=== PATIENT | female | born 1970 | race Two or more races ===

== ENCOUNTER 2019-05-06 09:27 | Emergency (ER) | payer OTHER ==
[~2019-05-06] VITALS: Ht 162.6 cm; Wt 115.9 kg
--- NOTE | 2019-05-06 09:50 | NUR ---
Assumed care of patient. C/O upper lip edema starting last night. Took 50mg PO benadryl last night without relief. Started lisinopril 6 months ago. NAD. Will continue to monitor.
--- NOTE | 2019-05-06 10:55 | NUR ---
Resting in [facility]. NAD. No needs.
--- NOTE | 2019-05-06 12:15 | NUR ---
Upper lip remains edematous. No respiratory distress. NAD. Provided with blanket.
--- NOTE | 2019-05-06 13:05 | NUR ---
C/O tongue swelling and mild thriat tightness. HILARY Christianson and MD Ron aware.
[2019-05-06] MEDS ORDERED: DIPHENHYDRAMINE 50 MG/ML, 1ML ONE (13:11)
[2019-05-06] MEDS ORDERED: DEXAMETHASONE 4 MG/ML, 5ML ONE (13:11)
[2019-05-06] MEDS ORDERED: FAMOTIDINE 20 MG/2 ML ONE (13:12)
[2019-05-06] MEDS ORDERED: DIPHENHYDRAMINE 50 MG/ML, 1ML IVPush ONE (13:30)
[2019-05-06] MEDS ORDERED: FAMOTIDINE 20 MG/2 ML IVPush ONE (13:30)
[2019-05-06] MEDS ORDERED: DEXAMETHASONE 4 MG/ML, 1ML IVPush ONE (13:30)
--- NOTE | 2019-05-06 13:30 | NUR ---
IV started and meds admin. VSS.
[2019-05-06 13:33] LABS: MEAN CORPUSCULAR HEMOGLOBIN 29.4 pg (27.0-34.8); MEAN CORPUSCULAR HGB CONC 32.1 g/dL (32.4-35.8); MEAN CORPUSCULAR VOLUME 91.8 fL (80-100); MEAN PLATELET VOLUME 8.6 fL (7.4-10.4); PLATELET COUNT 256 x10^3/uL (130-400); RED BLOOD COUNT 4.71 x10^6/uL (3.82-5.3); RED CELL DISTRIBUTION WIDTH 18.3 % (9.6-15.2)
[2019-05-06 13:45] LABS: ALBUMIN 3.4 g/dL (3.4-5.0); ANION GAP 7 mmol/L (5-15); CHLORIDE 110 mmol/L (98-107)
[2019-05-06 13:46] LABS: CREATININE 0.82 mg/dL (0.55-1.02)
[2019-05-06 14:06] LABS: BASOPHILS % (AUTO) 0 % (0-1); EOSINOPHILS # (AUTO) 0.06 x10^3/uL (0-0.4); EOSINOPHILS % (AUTO) 1 % (1-7); LYMPHOCYTES # (AUTO) 1.04 x10^3/uL (1-3.4); LYMPHOCYTES % (AUTO) 9 % (22-44); MD MORPH REVIEW ONLY; MONOCYTES # (AUTO) 0.16 x10^3/uL (0.2-0.8); MONOCYTES % (AUTO) 1 % (2-9); NEUTROPHILS # (AUTO) 10.86 x10^3/uL (1.8-6.8); NEUTROPHILS % (AUTO) 90 % (42-75)
[2019-05-06 14:07] LABS: ANISOCYTOSIS 1+
[2019-05-06 14:08] LABS: <PLATELET ESTIMATE> ADEQUATE; <PLT MORPHOLOGY> NORMAL PLT MORPH; POLYCHROMASIA 1+
[2019-05-06 14:34] VITALS: BP 145/87
--- NOTE | 2019-05-06 14:35 | NUR ---
Patient/Caregiver given discharge instructions and they have confirmed that they understand the instructions. Patient ambulatory with steady gait.
== END 2019-05-06 14:33 | disposition home or self-care (01) ==
LOC: ED 10:19
DX: T78.3XXA Angioneurotic edema, initial encounter (principal); T46.4X5A Adverse effect of angiotensin-converting-enzyme inhibitors, initial encounter; I10 Essential (primary) hypertension; J45.909 Unspecified asthma, uncomplicated; Y92.89 Other specified places as the place of occurrence of the external cause
CPT/HCPCS: 36415; 80048; 82040; 85025; 96374; 96375; 99283; J1100; J1200; J3490; J7512

== ENCOUNTER 2019-05-23 20:16 | Emergency (ER) | payer OTHER ==
[~2019-05-23] VITALS: Ht 162.6 cm; Wt 114.1 kg
[2019-05-23] MEDS ORDERED: ESCI10TA PO (20:33)
[2019-05-23] MEDS ORDERED: MONT10TA9 PO (20:33)
[2019-05-23] MEDS ORDERED: ATOR-2 PO (20:34)
[2019-05-23] MEDS ORDERED: TRAZ50TA66 PO (20:35)
[2019-05-23] MEDS ORDERED: BENZ-17 PO (20:35)
[2019-05-23] MEDS ORDERED: FERR324T5 PO (20:36)
--- NOTE | 2019-05-23 20:38 | NUR ---
THIS IS A 48 YO FEMALE COMING IN FOR [facility] 2 HOURS AGO IN P[address]ING LOT, DENIES DIZZINESS/LIGHTHEADED, DENIES LOC, DENIES SOB/CP. PATIENT C/O RIGHT KNEE PAIN AND SWELLING. PATIENT A&OX4, NAD, HYPERTENSIVE IN TRIAGE, PATIENT STATES "I JUST CHANGED BLOOD PRESSURE MEDICATIONS AND I HAVEN'T PICKED THE NEW ONE UP YET". ALL OTHER VSS. PLACED ON SPO2 AND BP MONITORING. FAMILY IN ROOM ,CALL LIGHT IN REACH
[2019-05-23] MEDS ORDERED: KETOROLAC 30 MG/1 ML ONE (20:43)
--- NOTE | 2019-05-23 20:50 | NUR ---
PATIENT TO XRAY
[2019-05-23] MEDS ORDERED: KETOROLAC 30 MG/1 ML IM ONE (21:00)
--- NOTE | 2019-05-23 21:20 | NUR ---
PATIENT MEDICATED PER EMAR, TOLERATED WELL. ICE PACKS APPLIED TO RIGHT KNEE AND LEFT ANKLE. PILLOW SUPPORT TO RIGHT KNEE. VSS, NAD, CALL LIGHT IN REACH
--- NOTE | 2019-05-23 21:46 | NUR ---
EMT TO ROOM TO SPLINT AND IMMOBILIZE KNEE
--- NOTE | 2019-05-23 21:54 | NUR ---
PATIENT VERBALIZES AND DEMONSTRATES APPROPRIATE USE AND CAPABILITY USING CRUTCHES. VSS UPON DISCHARGE. PATIENT HAS FAMILY MEMBER COMING TO PICK HER UP.
[2019-05-23 21:55] VITALS: BP 151/88
== END 2019-05-23 22:07 | disposition home or self-care (01) ==
LOC: ED 20:49
DX: M25.461 Effusion, right knee (principal); M17.10 Unilateral primary osteoarthritis, unspecified knee; M25.571 Pain in right ankle and joints of right foot; I10 Essential (primary) hypertension; E11.9 Type 2 diabetes mellitus without complications; W01.0XXA Fall on same level from slipping, tripping and stumbling without subsequent striking against object, initial encounter; Y93.89 Activity, other specified; Y92.410 Unspecified street and highway as the place of occurrence of the external cause; Y99.8 Other external cause status
CPT/HCPCS: 29505; 73564; 73610; 73630; 96372; 99283; J1885

== ENCOUNTER → 2019-10-29 | Outpatient (CLI) | payer OTHER ==
[~2019-10-29] MED LIST: AMLO10TA8 PO; ATOR-2 PO; BENZ-17 PO; ESCI10TA PO; FERR324T5 PO; HYDROCHLOROTH12.5 MG PO; MONT10TA11 PO; NAPR-685 PO; NATURE S BOUNTY PO; TRAZ50TA66 PO; [UNRECOGNIZED DRUG - OTHER] PO; [UNRECOGNIZED DRUG - OTHER] PO
[2019-10-29 09:04] LABS: MEAN CORPUSCULAR HEMOGLOBIN 31.3 pg (27.0-34.8); MEAN CORPUSCULAR HGB CONC 32.5 g/dL (32.4-35.8); MEAN CORPUSCULAR VOLUME 96.3 fL (80-100); MEAN PLATELET VOLUME 7.9 fL (7.4-10.4); PLATELET COUNT 259 x10^3/uL (130-400); RED BLOOD COUNT 4.24 x10^6/uL (3.82-5.3); RED CELL DISTRIBUTION WIDTH 14.2 % (9.6-15.2)
[2019-10-29 09:16] LABS: ALANINE AMINOTRANSFERASE 26 U/L (12-78); ALBUMIN 3.4 g/dL (3.4-5.0); ANION GAP 5 mmol/L (5-15); CHLORIDE 109 mmol/L (98-107); CREATININE 0.83 mg/dL (0.55-1.02)
[2019-10-29 09:19] LABS: ALKALINE PHOSPHATASE 79 U/L (45-117); BILIRUBIN,TOTAL 0.4 mg/dL (0.2-1.0); TOTAL PROTEIN 7.4 g/dL (6.4-8.2)
[2019-10-29 09:32] LABS: BASOPHILS # (AUTO) 0.04 x10^3/uL (0-0.1); BASOPHILS % (AUTO) 1 % (0-1); EOSINOPHILS # (AUTO) 0.18 x10^3/uL (0-0.4); EOSINOPHILS % (AUTO) 2 % (1-7); LYMPHOCYTES # (AUTO) 2.23 x10^3/uL (1-3.4); LYMPHOCYTES % (AUTO) 25 % (22-44); MD SCAN; MONOCYTES % (AUTO) 9 % (2-9); NEUTROPHILS # (AUTO) 5.77 x10^3/uL (1.8-6.8); NEUTROPHILS % (AUTO) 64 % (42-75)
== END | disposition home or self-care (01) ==
LOC: STAR 07:47
PROVIDERS: ATTEND Obstetrics & Gynecology Female Pelvic Medicine and Reconstructive Surgery
DX: Z01.818 Encounter for other preprocedural examination (principal); D25.0 Submucous leiomyoma of uterus; N92.6 Irregular menstruation, unspecified; N39.3 Stress incontinence (female) (male)
CPT/HCPCS: 36415; 80053; 85025

== ENCOUNTER 2019-11-02 06:39 | Day surgery (SDC) | payer OTHER ==
[2019-10-29 08:17] VITALS: BP 138/95
[~2019-11-02] VITALS: Ht 160 cm; Wt 113.0 kg
[2019-11-02] MEDS ORDERED: BUPIVACAINE/PF-EPI 0.25% 1:200K ONE (06:42)
[2019-11-02] MEDS ORDERED: VANCOMYCIN 500 MG ONE (06:42)
[2019-11-02] MEDS ORDERED: GENTAMICIN 80 MG/2 ML ONE (06:42)
[2019-11-02] MEDS ORDERED: LACTATED RINGERS 1,000 ML IV SCH (07:15)
[2019-11-02 07:24] LABS: HCG UR SG 1.017 (1.003-1.030)
[2019-11-02 07:27] VITALS: BP 138/95
[2019-11-02] MEDS ORDERED: ACETAMINOPHEN 500 MG TABLET PO ONE (07:30)
[2019-11-02] MEDS ORDERED: CHLORHEXIDINE 15 ML UDC MM ONE (07:30)
[2019-11-02] MEDS ORDERED: SCOPOLAMINE 1MG PATCH TD SCH (07:30)
[2019-11-02] MEDS ORDERED: DIAZEPAM 5 MG TABLET PO ONE (07:30)
[2019-11-02] MEDS ORDERED: FENTANYL PF 250 MCG/5ML ONE ×2 (08:09→10:17)
[2019-11-02] MEDS ORDERED: MIDAZOLAM 1 MG/ML, 2ML ONE (08:09)
[2019-11-02] MEDS ORDERED: DEXAMETHASONE 4 MG/ML, 1ML ONE ×2 (08:10→12:30)
[2019-11-02] MEDS ORDERED: CEFAZOLIN 1,000 MG ONE ×2 (08:10→12:30)
[2019-11-02] MEDS ORDERED: PROPOFOL 10 MG/ML, 20ML ONE ×2 (08:10→12:30)
[2019-11-02] MEDS ORDERED: GLYCOPYRROLATE 0.2MG/1ML, 5ML ONE ×2 (08:10→12:30)
[2019-11-02] MEDS ORDERED: ONDANSETRON 2MG/ML, 2ML ONE ×2 (08:10→12:30)
[2019-11-02] MEDS ORDERED: NEOSTIGMINE 1 MG/ML, 10ML ONE ×2 (08:10→12:30)
[2019-11-02] MEDS ORDERED: SUCCINYLCHOLINE 20 MG/ML, 10ML ONE ×2 (08:10→12:30)
[2019-11-02] MEDS ORDERED: ROCURONIUM 10MG/ML,5ML ONE ×2 (08:10→12:30)
[2019-11-02] MEDS ORDERED: hydrALAzine 20 MG/ML, 1ML IV PRN (09:00)
[2019-11-02] MEDS ORDERED: OXYcodone 5 MG/5 ML ORAL.SOL UDC PO PRN (09:00)
[2019-11-02] MEDS ORDERED: LABETALOL 5MG/ML, 20ML IV PRN (09:00)
[2019-11-02] MEDS ORDERED: PROMETHAZINE 25 MG SUPP PR PRN (09:00)
[2019-11-02] MEDS ORDERED: PROMETHAZINE 25 MG/ML, 1ML IVPush PRN (09:00)
[2019-11-02] MEDS ORDERED: ONDANSETRON 2MG/ML, 2ML IVPush PRN (09:00)
[2019-11-02] MEDS ORDERED: HYDROmorphone 1 MG/ML, 1ML INJ IVPush PRN (09:00)
[2019-11-02] MEDS ORDERED: MEPERIDINE/PF 25MG/0.5ML IVPush PRN (09:00)
[2019-11-02] MEDS ORDERED: SUGAMMADEX 200 MG/2 ML IVPush ONE (09:02)
[2019-11-02] MEDS ORDERED: LIDOCAINE-MPF 2% ,5ML ONE (09:02)
[2019-11-02] MEDS ORDERED: FLUORESCEIN SODIUM 500 MG/5 ML ONE (11:54)
[2019-11-02] MEDS ORDERED: FUROSEMIDE 20 MG/2 ML ONE (12:09)
[2019-11-02] MEDS ORDERED: FENTANYL PF 100 MCG/2ML ONE ×2 (12:58→13:11)
[2019-11-02] MEDS ORDERED: OXYcodone 5 MG/5 ML ORAL.SOL UDC ONE ×2 (12:58→13:07)
[2019-11-02] MEDS: FENTANYL PF 100 MCG/2ML IV PRN ×4 (12:59→13:42)
[2019-11-02] MEDS ORDERED: KETOROLAC 30 MG/1 ML ONE (13:46)
[2019-11-02] MEDS ORDERED: KETOROLAC 30 MG/1 ML IVPush PRN (14:00)
== END 2019-11-02 17:10 | disposition home or self-care (01) ==
LOC: OUT 06:39
PROVIDERS: ATTEND Obstetrics & Gynecology Female Pelvic Medicine and Reconstructive Surgery
DX: D25.1 Intramural leiomyoma of uterus (principal); Z11.59 Encounter for screening for other viral diseases; N92.1 Excessive and frequent menstruation with irregular cycle; N94.6 Dysmenorrhea, unspecified; N39.46 Mixed incontinence; N81.89 Other female genital prolapse; N81.11 Cystocele, midline; N81.6 Rectocele; N81.5 Vaginal enterocele; N73.6 Female pelvic peritoneal adhesions (postinfective); R10.2 Pelvic and perineal pain; I10 Essential (primary) hypertension; F32.9 Major depressive disorder, single episode, unspecified; J45.909 Unspecified asthma, uncomplicated; E78.5 Hyperlipidemia, unspecified; F41.9 Anxiety disorder, unspecified; G43.909 Migraine, unspecified, not intractable, without status migrainosus; G47.00 Insomnia, unspecified; M19.90 Unspecified osteoarthritis, unspecified site; F12.90 Cannabis use, unspecified, uncomplicated; Z79.899 Other long term (current) drug therapy; Z87.891 Personal history of nicotine dependence; Z88.8 Allergy status to other drugs, medicaments and biological substances
CPT/HCPCS: 36415; 57265; 57282; 57288; 58554; 81025; 87635; 88307; C1771; J0330; J0690; J1100; J1170; J1580; J1885; J1940; J2250; J2405; J2704; J2710; J3010; J3370; J7120

== ENCOUNTER → 2019-12-17 | Outpatient (CLI) | payer OTHER ==
[2019-12-17 15:53] LABS: BASOPHILS # (AUTO) 0.08 x10^3/uL (0-0.1); BASOPHILS % (AUTO) 1 % (0-1); EOSINOPHILS # (AUTO) 0.19 x10^3/uL (0-0.4); EOSINOPHILS % (AUTO) 2 % (1-7); LYMPHOCYTES # (AUTO) 2.83 x10^3/uL (1-3.4); LYMPHOCYTES % (AUTO) 29 % (22-44); MD NO; MEAN CORPUSCULAR HEMOGLOBIN 30.8 pg (27.0-34.8); MEAN CORPUSCULAR HGB CONC 32.4 g/dL (32.4-35.8); MEAN CORPUSCULAR VOLUME 95.3 fL (80-100); MEAN PLATELET VOLUME 8.8 fL (7.4-10.4); MONOCYTES # (AUTO) 0.84 x10^3/uL (0.2-0.8); MONOCYTES % (AUTO) 9 % (2-9); NEUTROPHILS # (AUTO) 5.97 x10^3/uL (1.8-6.8); NEUTROPHILS % (AUTO) 60 % (42-75); PLATELET COUNT 271 x10^3/uL (130-400); RED BLOOD COUNT 4.42 x10^6/uL (3.82-5.3); RED CELL DISTRIBUTION WIDTH 13.7 % (9.6-15.2)
[2019-12-17 15:58] LABS: INTERNATIONAL NORMALIZED RATIO 0.99 (0.93-1.1); PROTHROMBIN TIME 10.2 Seconds (9.6-11.5)
[2019-12-17 16:00] LABS: ALBUMIN 3.6 g/dL (3.4-5.0); ANION GAP 6 mmol/L (5-15); CALCIUM 9.4 mg/dL (8.5-10.1); CHLORIDE 106 mmol/L (98-107)
[2019-12-17 16:03] LABS: ALANINE AMINOTRANSFERASE 20 U/L (12-78); ALKALINE PHOSPHATASE 93 U/L (45-117); BILIRUBIN,TOTAL 0.4 mg/dL (0.2-1.0); CREATININE 0.76 mg/dL (0.55-1.02); TOTAL PROTEIN 7.7 g/dL (6.4-8.2)
== END | disposition home or self-care (01) ==
LOC: STAR 14:41
PROVIDERS: ATTEND Orthopaedic Surgery
DX: Z01.818 Encounter for other preprocedural examination (principal); M17.9 Osteoarthritis of knee, unspecified
CPT/HCPCS: 36415; 80053; 83036; 85025; 85610; 85730; 87081

== ENCOUNTER → 2019-12-25 | Outpatient (CLI) | payer OTHER | END | disposition home or self-care (01) | LOC: STAR 11:40 | PROVIDERS: ATTEND Anesthesiology | DX: Z01.812 Encounter for preprocedural laboratory examination (principal); Z20.828 Contact with and (suspected) exposure to other viral communicable diseases | CPT/HCPCS: 36415; 87635 ==

== ENCOUNTER 2019-12-30 05:35 | Day surgery (SDC) | payer OTHER ==
[~2019-12-30] VITALS: Ht 162.6 cm; Wt 116.6 kg
[2019-12-30] MEDS ORDERED: LACTATED RINGERS 1,000 ML IV SCH (05:59)
[2019-12-30] MEDS ORDERED: ACETAMINOPHEN 500 MG TABLET PO ONE (06:00)
[2019-12-30] MEDS ORDERED: GABAPENTIN 300 MG CAPSULE PO ONE (06:00)
[2019-12-30] MEDS ORDERED: CHLORHEXIDINE 15 ML UDC MM ONE (06:00)
[2019-12-30 06:05] VITALS: BP 149/100
[2019-12-30] MEDS ORDERED: MIDAZOLAM 1 MG/ML, 2ML ONE (06:41)
[2019-12-30] MEDS ORDERED: FENTANYL PF 100 MCG/2ML ONE ×3 (06:41→08:59)
[2019-12-30] MEDS ORDERED: HYDROmorphone 1 MG/ML, 1ML INJ IV PRN (07:00)
[2019-12-30] MEDS ORDERED: ONDANSETRON 2MG/ML, 2ML IV PRN (07:00)
[2019-12-30] MEDS ORDERED: HYDROcodone/APAP 5/325 TABLET PO PRN (07:00)
[2019-12-30] MEDS ORDERED: hydrALAzine 20 MG/ML, 1ML ONE (07:08)
[2019-12-30] MEDS ORDERED: SUGAMMADEX 200 MG/2 ML IVPush ONE (07:08)
[2019-12-30] MEDS ORDERED: CEFAZOLIN 1,000 MG ONE (07:17)
[2019-12-30] MEDS ORDERED: ROCURONIUM 10MG/ML,5ML ONE (07:17)
[2019-12-30] MEDS ORDERED: DEXAMETHASONE 4 MG/ML, 1ML ONE (07:17)
[2019-12-30] MEDS ORDERED: ONDANSETRON 2MG/ML, 2ML ONE ×2 (07:17→08:59)
[2019-12-30] MEDS ORDERED: PROPOFOL 10 MG/ML, 20ML ONE (07:17)
[2019-12-30] MEDS ORDERED: NEOSTIGMINE 1 MG/ML, 10ML ONE (07:17)
[2019-12-30] MEDS ORDERED: GLYCOPYRROLATE 0.2MG/1ML, 5ML ONE (07:17)
[2019-12-30] MEDS ORDERED: SUCCINYLCHOLINE 20 MG/ML, 10ML ONE (07:17)
[2019-12-30] MEDS ORDERED: PROMETHAZINE 25 MG/ML, 1ML IVPush PRN (08:00)
[2019-12-30] MEDS ORDERED: MEPERIDINE/PF 25MG/0.5ML IVPush PRN (08:00)
[2019-12-30] MEDS ORDERED: HYDROmorphone 1 MG/ML, 1ML INJ IVPush PRN (08:00)
[2019-12-30] MEDS ORDERED: OXYcodone 5 MG/5 ML ORAL.SOL UDC PO PRN (08:00)
[2019-12-30] MEDS ORDERED: HYDROcodone/APAP 7.5-325MG/15ML UDC PO PRN (08:00)
[2019-12-30] MEDS ORDERED: TRAZODONE 50MG TABLET PO SCH (09:00)
[2019-12-30] MEDS ORDERED: HYDROCHLOROTHIAZIDE 12.5 MG CAPSULE PO SCH (09:00)
[2019-12-30] MEDS ORDERED: MAGNESIUM HYDROXIDE 8%, 30ML UDC PO PRN (09:00)
[2019-12-30] MEDS ORDERED: DOCUSATE 100 MG CAPSULE PO SCH (09:00)
[2019-12-30] MEDS ORDERED: AMLODIPINE 10 MG TAB PO SCH (09:00)
[2019-12-30] MEDS ORDERED: SENNA/DOCUSATE TABLET PO PRN (09:00)
[2019-12-30] MEDS ORDERED: BISACODYL 10 MG SUPP PR PRN (09:00)
[2019-12-30] MEDS ORDERED: MONTELUKAST 10 MG TABLET PO SCH (09:00)
[2019-12-30] MEDS ORDERED: ESCITALOPRAM 10MG TABLET PO SCH (09:00)
[2019-12-30] MEDS: FENTANYL PF 100 MCG/2ML IV PRN ×2 (09:03→09:19)
[2019-12-30] MEDS: OXYcodone IR 5MG TABLET PO PRN ×2 (10:22→16:18)
[2019-12-30] MEDS ORDERED: ACETAMINOPHEN 325 MG TABLET PO PRN (11:00)
[2019-12-30] MEDS ORDERED: ONDANSETRON ODT 4 MG PO PRN (11:00)
[2019-12-30] MEDS ORDERED: DIPHENHYDRAMINE 25 MG CAPSULE PO PRN (11:00)
[2019-12-30] MEDS ORDERED: NS + 20MEQ KCL 1,000 ML IV SCH (11:00)
[2019-12-30] MEDS ORDERED: ONDANSETRON 2MG/ML, 2ML IVPush ONE (12:45)
[2019-12-30] MEDS ORDERED: CEFAZOLIN PMX 2GM/50ML 50 ML IVPB SCH (15:30)
[2019-12-30] MEDS ORDERED: OXYC5TAB2 PO (15:35)
[2019-12-30] MEDS ORDERED: MELO7.5T31 PO (15:35)
[2019-12-30] MEDS ORDERED: TRAM50TA2 PO (15:36)
[2019-12-30] MEDS ORDERED: ASPIRIN 81 MG TABLET EC PO SCH (18:00)
[2019-12-30 19:06] VITALS: BP 135/84
[2019-12-30] MEDS ORDERED: ZOLPIDEM 5MG TABLET PO PRN (21:00)
[2019-12-30] MEDS ORDERED: ATORVASTATIN 10 MG TABLET PO SCH (21:00)
[2019-12-31] MEDS ORDERED: DEXAMETHASONE 4 MG/ML, 1ML IVPush SCH (06:00)
== END 2019-12-30 19:45 | disposition home or self-care (01) ==
LOC: OUT 05:35 → 4NE 09:46 → OUT 19:45
PROVIDERS: ATTEND Orthopaedic Surgery
DX: M17.0 Bilateral primary osteoarthritis of knee (principal); M94.261 Chondromalacia, right knee; M25.761 Osteophyte, right knee; G89.18 Other acute postprocedural pain; I10 Essential (primary) hypertension; F32.9 Major depressive disorder, single episode, unspecified; J45.909 Unspecified asthma, uncomplicated; E66.01 Morbid (severe) obesity due to excess calories; Z79.1 Long term (current) use of non-steroidal anti-inflammatories (NSAID); Z79.899 Other long term (current) drug therapy; Z88.8 Allergy status to other drugs, medicaments and biological substances; Z82.61 Family history of arthritis; Z82.3 Family history of stroke; Z82.49 Family history of ischemic heart disease and other diseases of the circulatory system
CPT/HCPCS: 27447; 64447; 97110; 97161; 97165; C1713; C1776; J0171; J0330; J0360; J0690; J1100; J1885; J2250; J2405; J2704; J2710; J2795; J3010; J3370; J7120; Q0162; G0378

== ENCOUNTER 2020-01-09 02:26 | Emergency (ER) | payer OTHER ==
[~2020-01-09] VITALS: Ht 162.6 cm; Wt 117.0 kg
[~2020-01-09 02:26] MED LIST changes: +MELO7.5T31 PO; +OXYC5TAB2 PO; +TRAM50TA2 PO
[2020-01-09 02:38] VITALS: BP 157/104
[2020-01-09 03:19] LABS: BASOPHILS # (AUTO) 0.11 x10^3/uL (0-0.1); BASOPHILS % (AUTO) 1 % (0-1); EOSINOPHILS # (AUTO) 0.49 x10^3/uL (0-0.4); EOSINOPHILS % (AUTO) 4 % (1-7); LYMPHOCYTES # (AUTO) 2.17 x10^3/uL (1-3.4); LYMPHOCYTES % (AUTO) 15 % (22-44); MD NO; MEAN CORPUSCULAR HEMOGLOBIN 29.9 pg (27.0-34.8); MEAN CORPUSCULAR HGB CONC 31.9 g/dL (32.4-35.8); MEAN CORPUSCULAR VOLUME 93.8 fL (80-100); MEAN PLATELET VOLUME 7.5 fL (7.4-10.4); MONOCYTES % (AUTO) 6 % (2-9); NEUTROPHILS # (AUTO) 10.58 x10^3/uL (1.8-6.8); NEUTROPHILS % (AUTO) 75 % (42-75); PLATELET COUNT 337 x10^3/uL (130-400); RED BLOOD COUNT 3.89 x10^6/uL (3.82-5.3); RED CELL DISTRIBUTION WIDTH 13.5 % (9.6-15.2)
[2020-01-09 03:26] LABS: ANION GAP 8 mmol/L (5-15); CALCIUM 8.9 mg/dL (8.5-10.1); CHLORIDE 107 mmol/L (98-107); CREATININE 0.74 mg/dL (0.55-1.02)
== END 2020-01-09 04:51 | disposition left against medical advice (07) ==
LOC: ED 02:56
DX: K59.00 Constipation, unspecified (principal); R11.2 Nausea with vomiting, unspecified
CPT/HCPCS: 36415; 74022; 80048; 85025; 99284

== ENCOUNTER → 2020-02-19 | Outpatient (CLI) | payer OTHER ==
[~2020-02-19] MED LIST changes: +ACET-76 PO; +ATOR10TA9 PO
[2020-02-19 12:04] LABS: BASOPHILS % (AUTO) 1 % (0-1); EOSINOPHILS % (AUTO) 1 % (1-7); LYMPHOCYTES % (AUTO) 29 % (22-44); MEAN CORPUSCULAR HGB CONC 32.1 g/dL (32.4-35.8); MEAN PLATELET VOLUME 8.3 fL (7.4-10.4); MONOCYTES % (AUTO) 11 % (2-9); NEUTROPHILS % (AUTO) 58 % (42-75); PLATELET COUNT 273 x10^3/uL (130-400); RED BLOOD COUNT 4.84 x10^6/uL (3.82-5.3); RED CELL DISTRIBUTION WIDTH 13.9 % (9.6-15.2)
[2020-02-19 12:06] LABS: MD NO
[2020-02-19 12:10] LABS: PROTHROMBIN TIME 10.6 Seconds (9.6-11.5)
[2020-02-19 12:12] LABS: ALANINE AMINOTRANSFERASE 17 U/L (12-78); ALBUMIN 3.7 g/dL (3.4-5.0); ANION GAP 8 mmol/L (5-15); CALCIUM 9.2 mg/dL (8.5-10.1); CHLORIDE 108 mmol/L (98-107); CREATININE 0.83 mg/dL (0.55-1.02)
[2020-02-19 12:14] LABS: ALKALINE PHOSPHATASE 108 U/L (45-117); BILIRUBIN,TOTAL 0.4 mg/dL (0.2-1.0); TOTAL PROTEIN 7.9 g/dL (6.4-8.2)
== END | disposition home or self-care (01) ==
LOC: STAR 10:53
PROVIDERS: ATTEND Orthopaedic Surgery
DX: Z01.812 Encounter for preprocedural laboratory examination (principal); Z20.828 Contact with and (suspected) exposure to other viral communicable diseases; M17.12 Unilateral primary osteoarthritis, left knee
CPT/HCPCS: 36415; 80053; 83036; 85025; 85610; 85730; 87081; 87635